=== PATIENT | male | born 1970 | race Caucasian/White ===

== ENCOUNTER 2020-11-04 13:16 | Inpatient (IN) ==
[2020-11-04 14:01] LABS: Albumin 3.6 G/DL (3.4-5.0); Basophils # 0.1 10*3/uL (0.0-0.2); Basophils % 0.3 % (0.0-0.8); Bilirubin,Total 0.8 MG/DL (0.2-1.0); Calcium 8.8 MG/DL (8.5-10.1); Eosinophils % 0.1 % (0.00-10.9); Hematocrit 49.6 VOL% (42.0-52.0); Hemoglobin 16.6 GM/DL (14.0-18.0); Immature Granulocytes % 0.7 %; Lymphocytes # 0.8 10*3/uL (1.4-4.0); Lymphocytes % 5.5 % (21.2-54.2); Mean Corpuscular HGB Conc 33.5 GM/DL (32-36); Mean Corpuscular Volume 86.4 FL (87-102); Mean Platelet Volume 10.7 FL (9.6-12.0); Monocytes % 8.2 % (1.7-12.7); Neutrophils % 85.2 % (38.7-73.9); Osmolality,Calculated 293.8 MOS/KG (273-304); Platelet Count 126 T/CUMM (130-400); Potassium 3.8 MMOL/L (3.5-5.1); Red Blood Count 5.74 MC/CUMM (3.8-5.5); Total Protein 7.1 G/DL (6.4-8.3); White Blood Count 14.4 T/CUMM (4-12)
[2020-11-04] MEDS ORDERED: ENOXAPARIN 30 MG/0.3 ML SYRINGE SUBCUT STA (14:03)
[2020-11-04 14:12] LABS: INR 1.1; PT Patient Result 11.4 SECS (9.8-11.9)
[2020-11-04] MEDS ORDERED: DEXTROSE 50% 25 GM/50 ML VIAL IV PRN (15:18)
[2020-11-04] MEDS ORDERED: ONDANSETRON 4 MG/2 ML VIAL IV PRN (15:18)
[2020-11-04] MEDS ORDERED: ACETAMINOPHEN 325 MG TABLET PO PRN (15:18)
[2020-11-04] MEDS ORDERED: GLUCAGON 1 MG VIAL IM PRN (15:18)
[2020-11-04] MEDS ORDERED: AZITHROMYCIN INJ 500 MG in SODIUM CHLORIDE 0.9% 250 ML IV SCH (15:30)
[2020-11-04] MEDS ORDERED: ENOXAPARIN 100 MG/ML SYRINGE SUBCUT SCH (15:30)
[2020-11-04] MEDS ORDERED: cefTRIAXone 1,000 MG in SYRINGE 1 EACH IV SCH (15:30)
[2020-11-04] MEDS ORDERED: ATORVASTATIN 40 MG TABLET PO SCH (21:00)
[2020-11-04] MEDS: oxyCODONE/ACETAMINOPHEN 5-325 MG TABLET PO PRN (21:24)
[2020-11-05] MEDS: oxyCODONE/ACETAMINOPHEN 5-325 MG TABLET PO PRN (04:59)
[2020-11-05 07:00] LABS: Basophils # 0.1 10*3/uL (0.0-0.2); Basophils % 0.6 % (0.0-0.8); Eosinophils # 0.1 10*3/uL (0.0-0.87); Eosinophils % 0.7 % (0.00-10.9); Hematocrit 47.7 VOL% (42.0-52.0); Immature Granulocytes % 0.5 %; Immature Granulocytes Absolute 0.05 #; Lymphocytes # 1.6 10*3/uL (1.4-4.0); Mean Corpuscular HGB Conc 33.5 GM/DL (32-36); Mean Corpuscular Volume 86.3 FL (87-102); Monocytes % 10.3 % (1.7-12.7); Neutrophils % 71.9 % (38.7-73.9); Platelet Count 134 T/CUMM (130-400); Red Blood Count 5.53 MC/CUMM (3.8-5.5); Red Cell Distribution Width 12.9 % (9.3-17.3); White Blood Count 10.2 T/CUMM (4-12)
[2020-11-05 07:25] LABS: Albumin 3.3 G/DL (3.4-5.0); Bilirubin,Total 1.1 MG/DL (0.2-1.0); Osmolality,Calculated 286.1 MOS/KG (273-304); Potassium 3.6 MMOL/L (3.5-5.1); Total Protein 6.9 G/DL (6.4-8.3)
[2020-11-05 07:40] LABS: Risk Ratio 4.39; VLDL CHOLESTEROL 29.2 MG/DL
[2020-11-05] MEDS ORDERED: PANTOPRAZOLE 40 MG TABLET PO SCH (09:00)
[2020-11-05] MEDS ORDERED: ASPIRIN EC 81 MG TABLET PO SCH (09:00)
[2020-11-05] MEDS ORDERED: amLODIPine 10 MG TABLET PO SCH (09:00)
[2020-11-05] MEDS ORDERED: METOPROLOL TARTRATE 50 MG TABLET PO SCH ×2 (09:00→09:30)
[2020-11-05] MEDS ORDERED: amLODIPine 5 MG TABLET PO SCH (09:00)
[2020-11-05] MEDS ORDERED: ENOXAPARIN 100 MG/ML SYRINGE SUBCUT SCH (09:00)
[2020-11-05] MEDS ORDERED: CLOPIDOGREL 75 MG TABLET PO ONE (09:18)
[2020-11-05] MEDS ORDERED: hydrALAZINE 20 MG/1 ML VIAL IV ONE (13:31)
[2020-11-05] MEDS ORDERED: ALPRAZolam 0.5 MG TABLET PO PRN (13:32)
[2020-11-05 14:34] VITALS: BP 146/81
[2020-11-06] MEDS ORDERED: CLOPIDOGREL 75 MG TABLET PO SCH (09:00)
== END 2020-11-05 14:50 | disposition home or self-care (01) | DRG 280 ==
LOC: EDBD → EDUNIT# → N.ED 13:16 → N.EDINP 15:18 → OBSVTOIN 15:18 → SUATTDRO 15:18 → INTOOBSV 15:18 → N.EDINP 17:40 → N.TELEN 17:49
PROVIDERS: ADMIT Internal Medicine; ATTEND Emergency Medicine